=== PATIENT | male | born 1945 | race Caucasian/White ===

== ENCOUNTER → 2017-10-14 | Outpatient (CLI) | payer OTHER | END | disposition home or self-care (01) | LOC: PLD 13:45 → LAB SHORT 13:45 | DX: L11.8 Other specified acantholytic disorders (principal) | CPT/HCPCS: 88305 ==

== ENCOUNTER → 2019-05-18 | Outpatient (CLI) | payer OTHER | END | disposition home or self-care (01) | LOC: OLS 11:34 → LAB SHORT 11:34 | DX: D23.22 Other benign neoplasm of skin of left ear and external auricular canal (principal) | CPT/HCPCS: 88305 ==

== ENCOUNTER → 2019-07-13 | Outpatient (CLI) | payer OTHER | END | disposition home or self-care (01) | LOC: PLD 07:50 → LAB SHORT 07:50 | DX: L30.8 Other specified dermatitis (principal) | CPT/HCPCS: 88305; 88312; 88313 ==

== ENCOUNTER → 2024-12-06 | Outpatient (CLI) | payer OTHER ==
[2024-12-06 16:52] LABS: Alanine Aminotransfer (ALT/SGP 38 U/L (12-78); Albumin, Blood 4.3 g/dL (3.4-5.0); Albumin/Globulin Ratio 1.4 (0.8-1.8); Anion Gap 10 mmol/L (3-11); Aspartate Aminotrans (AST/SGOT 30 U/L (12-37); Bilirubin, Total 0.6 mg/dL (0.1-1.0); Blood Urea Nitrogen 12 mg/dL (8-24); Bun/Creatinine Ratio 11.5 (12.0-20.0); CHOL/HDL RATIO 2.5; CO2, Blood 28 mmol/L (21-32); Calcium, Blood 9.8 mg/dL (8.5-10.1); Chloride, Blood 104 mmol/L (98-108); Cholesterol 160 mg/dL (50-200); Creatinine, Blood 1.04 mg/dL (0.60-1.20); Globulin, Blood 3.1 g/dL (2.2-4.0); Glomerular Filtration Rate 73 (60-); Glucose, Blood 164 mg/dL (70-99); HDL Cholesterol 63 mg/dL (>39); Low Density Lipoprotein Chol 65 mg/dL (0-110); Sodium, Blood 138 mmol/L (136-145); Total Protein, Blood 7.4 g/dL (6.4-8.2); Triglycerides 162 mg/dL (30-160); Very Low Density Lipoprot Chol 32 mg/dL (6-32)
[2024-12-06 17:04] LABS: Alk Phos 61 U/L (50-136)
[2024-12-06 17:38] LABS: Microalb/Creat Ratio UR, Rand 98.611 mg/g (0.000-30.000)
== END | disposition home or self-care (01) ==
LOC: LAB 14:27 → LAB SHORT 14:27
PROVIDERS: Hospitalist
DX: E11.69 Type 2 diabetes mellitus with other specified complication (principal); E78.2 Mixed hyperlipidemia; E03.9 Hypothyroidism, unspecified
CPT/HCPCS: 80053; 80061; 82043; 82570; 83036; 84439; 84443

== ENCOUNTER → 2025-04-26 | Outpatient (CLI) | payer OTHER ==
[2025-04-26 18:43] LABS: Thyroid Stimulating Hormone 0.084 uIU/mL (0.360-4.800)
== END ==
LOC: LAB 16:45 → LAB SHORT 16:45
PROVIDERS: Hospitalist
DX: E03.9 Hypothyroidism, unspecified (principal)
CPT/HCPCS: 84439; 84443

== ENCOUNTER → 2025-05-24 | Outpatient (CLI) | payer OTHER | LOC: LAB 08:19 → LAB SHORT 08:19 | DX: L82.0 Inflamed seborrheic keratosis (principal); D48.5 Neoplasm of uncertain behavior of skin | CPT/HCPCS: 88305 ==